=== PATIENT | female | born 1975 | race African-American/Black ===

== ENCOUNTER → 2023-06-24 | Emergency (ER) | payer SELFPAY ==
[~2023-06-24] MED LIST: CIPROFLOXACIN HCL 500 MG TAB ONE; NA CHLORIDE 0.9% 1,000 ML ONE
[2023-06-24 10:03] LABS: Specific Gravity > 1.030 (1.005-1.030); Urine Bacteria 20-50 /HPF (<20); Urine Bilirubin NEGATIVE (Negative); Urine Blood 1+ (Negative); Urine Clarity Extremely Turbid (Clear); Urine Color Yellow (Yellow); Urine Glucose NEGATIVE (Negative); Urine Mucus 2+ /HPF (None Seen); Urine Protein 2+ (Negative); Urine RBC 21-50 /HPF (None Seen); Urine Urobilinogen Normal (Normal)
[2023-06-24 10:05] LABS: Absolute Lymphocytes (CBC) 1.9 K/uL (0.7-4.9); Hematocrit 36.3 % (36.0-45.0); Lymphocytes % 15.7 % (15.3-44.8); Platelets 716 thou/uL (152-406)
[2023-06-24 10:16] LABS: SARS-CoV-2 Antigen Rapid Res Negative (Negative)
[2023-06-24 10:26] LABS: Albumin 3.4 g/dL (3.4-5.0); Bilirubin Total 0.3 mg/dL (0.2-1.0); Potassium 3.5 mEq/L (3.5-5.1); Protein, Total 8.6 g/dL (6.4-8.2); Troponin High Sensitivity 13.8 pg/mL (<58.9)
--- NOTE | 2023-06-24 11:02 | RAD REPORT ---
EXAM DESCRIPTION: Misti Single View06/24/2023 10:40 am CLINICAL HISTORY: Chest pain COMPARISON: none FINDINGS: The lungs appear clear of acute infiltrate. The heart is mildly to moderately enlarged IMPRESSION: No acute abnormalities displayed
--- NOTE | 2023-06-24 11:21 | RAD REPORT ---
EXAM DESCRIPTION: CT - Chest Abdomen Pelvis W Cont - 06/24/2023 10:47 am CLINICAL HISTORY: Chest and abdominal pain COMPARISON: none TECHNIQUE: Computed axial tomography of the chest, abdomen and pelvis was obtained. 100 cc Isovue-30 0 was administered intravenously. Oral contrast was not requested. This limits evaluation of bowel. All CT scans are performed using dose optimization technique as appropriate and may include automated exposure control or mA/KV adjustment according to patient size. FINDINGS: The lungs are clear No mediastinal or hilar lymphadenopathy. No pleural effusion. No pericardial effusion. Liver, spleen, pancreas, adrenals and kidneys are unremarkable No evidence of diverticulitis Normal appendix. No adnexal mass Small umbilical hernia IMPRESSION: No acute abnormality is displayed
--- NOTE | 2023-06-24 12:10 | EDPHYS ---
Physician Documentation [facility] Name: Judd Walker Age: 48 yrs Sex: Female : 1975 Arrival Date: 06/24/2023 Time: 09:21 Bed 7 Private MD: ED Physician Enoch Nickerson HPI: 06/24 09:30 This 48 yrs old Black Female presents to ER via EMS with complaints of Abdominal Pain. rn 09:30 The patient presents with abdominal pain in the lower abdomen. Onset: The rn symptoms/episode began/occurred this morning. The symptoms do not radiate. Associated signs and symptoms: Pertinent negatives: nausea and vomiting, blood in stools, shortness of breath, vomiting, vomiting blood. The symptoms are described as achy, crampy. Modifying factors: The symptoms are alleviated by nothing, the symptoms are aggravated by pressure, touching the area. Severity of pain: At its worst the pain was mild in the emergency department the pain is unchanged. The patient has not experienced similar symptoms in the past. Patient reports right lower abdominal pain and groin pain that began this morning. Patient reports associated right-sided chest pain. Reports subjective fever and chills. Denies any vaginal discharge or rectal bleeding. Denies vaginal swelling but reports subjective swelling to suprapubic area and right groin. No cough or shortness of breath.. Historical: - Allergies: 09:27 No Known Allergies; nj1 - PMHx: 09:27 Depressive disorder; nj1 - PSHx: 09:27 Hysterectomy; nj1 - Immunization history:: Client reports receiving the 2nd dose of the Covid vaccine. - Social history:: Smoking status: Patient reports the use of cigarette tobacco products, denies chronic smoking, but will smoke occasionally. - Family history:: not pertinent. - Hospitalizations: : No recent hospitalization is reported. ROS: 09:30 Constitutional: Negative for fever, chills, and weight loss, Cardiovascular: Positive rn for chest pain on the right side. Respiratory: Negative for shortness of breath, cough, wheezing, and pleuritic chest pain, Abdomen/GI: Positive for suprapubic and right inguinal pain Back: Negative for injury and pain, MS/Extremity: Negative for injury and deformity, Skin: Negative for injury, rash, and discoloration, Neuro: Positive for generalized weakness and malaise Exam: 09:30 Constitutional: This is a well developed, well nourished patient who is awake, alert, rn and in no acute distress. Head/Face: Normocephalic, atraumatic. Cardiovascular: Regular rate and rhythm. No pulse deficits. Respiratory: No increased work of breathing, no retractions or nasal flaring. Abdomen/GI: Soft mild right lower quadrant and suprapubic tenderness. No rebound or masses. Right inguinal region and mons region without swelling or discoloration. No evidence of abscess. No masses. MS/ Extremity: Pulses equal, no cyanosis. Neurovascular intact. Full, normal range of motion. Equal circumference. Neuro: Awake and alert, GCS 15 Vital Signs: 09:17 BP 155 / 105; Pulse 94; Resp 16; Temp 97.4(TE); Pulse Ox 99% on R/A; Weight 127.01 kg nj1 (R); Height 5 ft. 5 in. ; Pain 9/10; 10:25 BP 180 / 108; Pulse 81; Resp 19; Pulse Ox 100% ; nj1 11:35 BP 156 / 97; Pulse 84; Resp 17; Pulse Ox 100% on R/A; ap3 09:17 Body Mass Index 46.59 (127.01 kg, 165.1 cm) nj1 09:17 Pain Scale: Adult nj1 MDM: 09:25 Patient medically screened. rn 12:08 Differential diagnosis: appendicitis, bowel obstruction, diverticulitis, gastritis, rn non-specific abd pain, pancreatitis, Pyelonephritis, Ureterolithiasis, urinary tract infection. Data reviewed: vital signs, nurses notes, lab test result(s), radiologic studies, CT scan, and as a result, I will discharge patient. Counseling: I had a detailed discussion with the patient and/or guardian regarding the historical points, exam findings, and any diagnostic results supporting the discharge/admit diagnosis, lab results, radiology results, the need for outpatient follow up, to return to the emergency department if symptoms worsen or persist or if there are any questions or concerns that arise at home. Special discussion: I discussed with the patient/guardian in detail that at this point there is no indication for admission to the hospital. It is understood, however, that if the symptoms persist or worsen the patient needs to return immediately for re-evaluation. 06/24 09:26 Order name: CBC with Diff; Complete Time: 11:22 rn 06/24 09:26 Order name: CMP; Complete Time: : rn 06/24 09:26 Order name: Lipase; Complete Time: rn 06/24 09:26 Order name: Urinalysis w/ reflexes; Complete Time: : rn 06/24 09:26 Order name: Troponin High Sensitivity; Complete Time: 11: rn 06/24 09:26 Order name: Basic Metabolic Panel rn 06/24 09:26 Order name: Flu; Complete Time: 11: rn 06/24 09:26 Order name: SARS RAPID; Complete Time: : rn 06/24 09:26 Order name: XRAY Chest (1 view); Complete Time: : rn 06/24 09:34 Order name: CT Chest, Abdomen, Pelvis - W/Contrast; Complete Time: : rn 06/24 09:26 Order name: EKG; Complete Time: 09: rn 06/24 09:26 Order name: IV Saline Lock; Complete Time: 09:54 rn 06/24 09:26 Order name: Labs collected and sent; Complete Time: 09:54 rn 06/24 09:26 Order name: EKG - Nurse/Tech; Complete Time: 09:56 rn 06/24 09:26 Order name: Cardiac monitoring; Complete Time: : rn 06/24 09:26 Order name: O2 Per Protocol; Complete Time: 09: rn 06/24 09:26 Order name: O2 Sat Monitoring; Complete Time: 09:26 rn Administered Medications: 09:54 Drug: NS 0.9% IV 1000 ml IV at 1 bolus Per protocol; 1000 mL bolus Route: IV; Rate: 1 ap3 bolus; Site: right antecubital; 11:50 Drug: Ciprofloxacin PO 500 mg PO once Route: PO; ap3 Disposition Summary: 06/24/23 12:09 Discharge Ordered Notes: Location: Home rn Problem: new rn Symptoms: have improved rn Condition: Stable rn Diagnosis - UTI/ Urinary tract infection, site not specified rn - Lower abdominal pain, unspecified rn Followup: rn - With: Private Physician - When: As needed - Reason: Recheck today's complaints, Re-evaluation by your physician Discharge Instructions: - Discharge Summary Sheet rn - Abdominal Pain, Adult rn - Urinary Tract Infection, Adult rn Forms: - Medication Reconciliation Form rn - Thank You Letter rn - Antibiotic assistant prosecuting attorney - Prescription Opioid Use rn - Patient Portal Instructions rn - Leadership Thank You Letter rn Prescriptions: - Cipro 500 mg Oral tablet - take 1 tablet ORAL route every 12 hours for 10 days; 20 tablet; Refills: 0, rn Product Selection Permitted Signatures: Dispatcher [employer] EDMS Enoch Nickerson MD MD rn Prokisch, Amanda RN RN ap3 Verito Fong RN RN nj1 Corrections: (The following items were deleted from the chart) 09:37 09:26 Abdomen Pelvis W Con+CT.RAD.BRZ ordered. EDMS EDMS
--- NOTE | 2023-06-24 12:10 | ER ---
Nurse's Notes [facility] Name: Judd Walker Age: 48 yrs Sex: Female : 1975 Arrival Date: 06/24/2023 Time: 09:21 Bed 7 Private MD: Diagnosis: UTI/ Urinary tract infection, site not specified;Lower abdominal pain, unspecified Presentation: 06/24 09:17 Chief complaint: EMS states: Chest pains since this morning, along with pain in the or1 suprapubic area, burning with urination and swelling on her "private area". Homeless. 09:17 Coronavirus screen: Vaccine status: Patient reports receiving the 2nd dose of the covid nj1 vaccine. Ebola Screen: Patient denies travel to an Ebola-affected area in the 21 days before illness onset. Initial Sepsis Screen: Does the patient meet any 2 criteria? HR > 90 bpm. No. Patient's initial sepsis screen is negative. Does the patient have a suspected source of infection? No. Patient's initial sepsis screen is negative. Risk Assessment: Do you want to hurt yourself or someone else? Patient reports no desire to harm self or others. Onset of symptoms was June 24, 2023. 09:17 Method Of Arrival: EMS: [facility] 09:17 Acuity: KARISHMA 3 nj Historical: - Allergies: 09:27 No Known Allergies; nj1 - PMHx: 09:27 Depressive disorder; nj1 - PSHx: 09:27 Hysterectomy; nj1 - Immunization history:: Client reports receiving the 2nd dose of the Covid vaccine. - Social history:: Smoking status: Patient reports the use of cigarette tobacco products, denies chronic smoking, but will smoke occasionally. - Family history:: not pertinent. - Hospitalizations: : No recent hospitalization is reported. Screenin:25 Abuse screen: Denies threats or abuse. Nutritional screening: No deficits noted. ap3 Tuberculosis screening: No symptoms or risk factors identified. 09:36 [facility] ED Fall Risk Assessment (Adult) Score/Fall Risk Level 0 - 2 = Low Risk [facility] Oriented to surroundings, Maintained a safe environment, Hourly rounding (assess needs \\T\\ fall precautionary measures) done. Assessment: 09:20 General: Appears in no apparent distress. comfortable, Behavior is calm, cooperative, nj appropriate for age. 09:20 Pain: Complains of pain in chest and suprapubic area Pain currently is 9 out of 10 on a nj pain scale. Quality of pain is described as sharp. Neuro: Level of Consciousness is awake, alert, obeys commands, Oriented to person, place, time, situation. Cardiovascular: Patient's skin is warm and dry. Respiratory: Airway is patent Respiratory effort is even, unlabored. GI:. GI:. : Reports burning with urination. : Reports pain in suprapubic area. 10:25 Reassessment: Patient appears in no apparent distress at this time. No changes from [facility] previously documented assessment. 11:35 Reassessment: Patient and/or family updated on plan of care and expected duration. Pain ap3 level reassessed. Patient is alert, oriented x 3, equal unlabored respirations, skin warm/dry/pink. Vital Signs: 09:17 BP 155 / 105; Pulse 94; Resp 16; Temp 97.4(TE); Pulse Ox 99% on R/A; Weight 127.01 kg [facility] (R); Height 5 ft. 5 in. ; Pain 9/10; 10:25 BP 180 / 108; Pulse 81; Resp 19; Pulse Ox 100% ; nj1 11:35 BP 156 / 97; Pulse 84; Resp 17; Pulse Ox 100% on R/A; ap3 09:17 Body Mass Index 46.59 (127.01 kg, 165.1 cm) nj1 09:17 Pain Scale: Adult [facility] ED Course: 09:25 Patient arrived in ED. ap3 09:25 Enoch Nickerson MD is Attending Physician. rn 09:25 Patient has correct armband on for positive identification. Bed in low position. Call ap3 light in reach. Side rails up X2. leverman on. Pulse ox on. NIBP on. 09:27 Triage completed. nj1 09:30 Verito Fong, YIMI is Primary Nurse. nj1 09:36 Provided Education on: call light, fall precautions. nj1 09:54 SARS RAPID Sent. ap3 09:54 Flu Sent. ap3 09:54 CBC with Diff Sent. ap3 09:54 CMP Sent. ap3 09:54 Lipase Sent. ap3 09:55 Arm band placed on right wrist. ap3 09:55 Initial lab(s) drawn, by me, sent to lab. Inserted saline lock: 20 gauge in right ap3 antecubital area, using aseptic technique. Blood collected. 09:55 Urinalysis w/ reflexes Sent. ap3 09:55 Basic Metabolic Panel Sent. ap3 10:41 XRAY Chest (1 view) In Process Unspecified. EDMS 10:48 CT Chest, Abdomen, Pelvis - W/Contrast In Process Unspecified. EDMS Administered Medications: 09:54 Drug: NS 0.9% IV 1000 ml IV at 1 bolus Per protocol; 1000 mL bolus Route: IV; Rate: 1 ap3 bolus; Site: right antecubital; 11:50 Drug: Ciprofloxacin PO 500 mg PO once Route: PO; ap3 Outcome: 12:09 Discharge ordered by . rn 12:36 Patient left the ED. eb Signatures: Dispatcher [employer] EDMS Enoch Nickerson MD MD rn Libby Carter RN RN ap3 Vani Velasquez Norma RN RN nj1 Corrections: (The following items were deleted from the chart) 09:36 09:17 Chief complaint: EMS states: Chest pains since this morning, along with pain in nj1 the suprapubic area, burning with urination and swelling on her "private area". nj1
[2023-06-24 14:56] VITALS: BP 156/97; O2SAT 100
--- NOTE | 2023-06-27 17:03 | EKG ---
Test Date: 2023-06-24 Test Time: 09:39:55 Multimedia Artist: DAVID MEASUREMENT RESULTS: Intervals: Rate: 94 CO: 176 QRSD: 86 QT: 414 QTc: 517 Mckee: P: 57 CO: 176 QRS: -12 T: 46 INTERPRETIVE STATEMENTS: Normal sinus rhythm Possible Anterior infarct, age undetermined Prolonged QT Abnormal ECG No previous ECG available for comparison Electronically Signed On 06-27-23 16:54:38 DRY CHARGE PROCESS ATTENDANT by Franklyn Rahman
== END ==
LOC: ER 09:21
DX: N39.0 Urinary tract infection, site not specified (principal); R10.30 Lower abdominal pain, unspecified; F32.A Depression, unspecified; F17.210 Nicotine dependence, cigarettes, uncomplicated; Z11.52 Encounter for screening for COVID-19
CPT/HCPCS: 36415; 71045; 71260; 74177; 80053; 81001; 83690; 84484; 85025; 87804; 87811; 93005; 99285; J7030; Q9967